=== PATIENT | male | born 1960 | race Caucasian/White ===

== ENCOUNTER 2024-02-01 15:15 | Emergency (ER) | payer SELFPAY ==
[~2024-02-01] VITALS: Ht 175.3 cm; Wt 99.7 kg
[~2024-02-01 15:15] MED LIST: ABILIFY20 MG PO; FLUVOXAMINE MA100 M1 PO; MEMANTINE HYDRO10 MG PO; NAPROXEN500 MG PO; TRAZODONE100 MG PO
[2024-02-01] MEDS ORDERED: TRAZODONE100 MG PO (15:36)
[2024-02-01] MEDS ORDERED: ARIPIPRAZOLE20 MG PO (15:36)
[2024-02-01] MEDS ORDERED: FLUVOXAMINE MA100 M1 PO (15:36)
[2024-02-01] MEDS ORDERED: ABILIFY20 MG PO (15:36)
[2024-02-01 15:40] VITALS: BP 139/84
== END 2024-02-01 16:06 | disposition home or self-care (01) | DRG 951 ==
LOC: ED 15:15
DX: Z76.0 Encounter for issue of repeat prescription (principal); F25.9 Schizoaffective disorder, unspecified

== ENCOUNTER 2024-03-09 11:03 | Emergency (ER) | payer SELFPAY ==
[2024-03-09] VITALS (31 sets, daily range): BP systolic 128–178; BP diastolic 66–88
[~2024-03-09] VITALS: Ht 175.3 cm; Wt 98.0 kg
[~2024-03-09 11:03] MED LIST changes: +ARIPIPRAZOLE20 MG PO
[2024-03-09 12:18] LABS: BASO% 0.4 % (0-3); EOS% 0.6 % (0-8); HEMATOCRIT 52.3 % (39.0-50.0); HEMOGLOBIN 16.5 g/dl (14.0-18.0); IMMATURE GRANULOCYTES 0.3 % (0.0-5.0); LYMPH% 10.2 % (15-41); MEAN CELL VOLUME 90.8 fL CALC (80.0-100.0); MEAN CORPUSCULAR HGB 28.6 pG CALC (26.0-32.0); MEAN CORPUSCULAR HGB CONC 31.5 g/dL CAL (32.0-36.0); MONO% 5.4 % (2-13); NEUT# 5.95 thou/uL (1.82-7.42); NEUT% 83.1 % (42-76); RED BLOOD COUNT 5.76 mill/uL (4.70-6.10); RED CELL DISTRI WIDTH 13.4 % (11.5-15.5)
[2024-03-09 12:29] LABS: ALBUMIN 4.4 g/dL (3.2-5.0); BILIRUBIN, TOTAL 0.9 mg/dL (0.2-1.3); CREATININE 1.3 mg/dL (0.7-1.3); POTASSIUM 4.4 mmol/l (3.5-5.1); TOTAL PROTEIN 7.5 g/dL (6.3-8.2)
[2024-03-09] MEDS ORDERED: SODIUM CHLORIDE 0.9% 1,000 ML IV STA (12:44)
[2024-03-09] MEDS ORDERED: ONDANSETRON HCl 4 MG/2 ML SDV IV STA (12:44)
[2024-03-09] MEDS ORDERED: Pantoprazole Sodium 40 MG VIAL (Protonix) IV STA (12:44)
[2024-03-09] MEDS ORDERED: FAMOTIDINE 10MG/ML 2ML SDV IV ONE (12:45)
[2024-03-09 13:03] LABS: LIPASE 43 u/l (23-300)
[2024-03-09] MEDS ORDERED: cefTRIAXone SODIUM 2 GM in SODIUM CHLORIDE 0.9% 100 ML IV ONE (15:55)
== END 2024-03-09 20:00 | DRG 392 ==
LOC: ED 11:03
PROVIDERS: Family Medicine; Nurse Practitioner
DX: K22.89 Other specified disease of esophagus (principal); R13.10 Dysphagia, unspecified; F25.9 Schizoaffective disorder, unspecified; Z98.84 Bariatric surgery status; Z90.49 Acquired absence of other specified parts of digestive tract
CPT/HCPCS: J0696; J2405; J2470; Q9967

== ENCOUNTER 2024-04-23 07:12 | Day surgery (SDC) | payer OTHER ==
[~2024-04-23] VITALS: Ht 175.3 cm; Wt 94.3 kg
[~2024-04-23 07:12] MED LIST changes: +ARIPIPRAZOLE20 MG; +FINASTERIDE5 MG PO; +FLUVOXAMINE100 MG PO; +PROTONIX40 M2 PO; +TAMSULOSIN0.4 MG PO; +TRAZODONE50 MG PO; +TRELEGY ELLIPTA1 AER IN; +VENTOLIN HFA108 MCG IN
[2024-04-23] MEDS ORDERED: FAMOTIDINE 10MG/ML 2ML SDV IV ONE (07:16)
[2024-04-23] MEDS ORDERED: LACTATED RINGER'S 1,000 ML IV ONE (07:17)
[2024-04-23 08:57] VITALS: BP 118/76
[2024-04-23] MEDS ORDERED: PROPOFOL 200 MG/20 ML VIAL IV ONE (10:35)
[2024-04-23] MEDS ORDERED: LIDOCAINE HCL 2% 2ML SDV IV ONE (10:35)
== END 2024-04-23 09:15 | disposition home or self-care (01) | DRG 951 ==
LOC: ENDO 07:12
PROVIDERS: ATTEND Surgery
PROC: 0DJD8ZZ Inspection of Lower Intestinal Tract, Via Natural or Artificial Opening Endoscopic (ICD-10-PCS; principal; 2024-04-23)
DX: Z12.11 Encounter for screening for malignant neoplasm of colon (principal); K64.8 Other hemorrhoids